=== PATIENT | female | born 1945 | race Caucasian/White ===

== ENCOUNTER → 2016-08-22 | Outpatient (CLI) | payer OTHER ==
[2016-07-29 14:08] LABS: BASOPHIL# 0.1 X10e3 (0.0-0.3); BASOPHIL% 1.2 % (0.0-2.5); EOSINOPHIL# 0.6 X10e3 (0.0-0.7); EOSINOPHIL% 8.5 % (0.0-7.0); HEMATOCRIT 38.6 % (35.0-45.0); HEMOGLOBIN 12.9 gm/dl (12.0-16.0); LYMPHOCYTE# 0.9 X10e3 (1.0-3.5); LYMPHOCYTE% 11.6 % (17.0-45.0); MEAN CORPUSCULAR HEMOGLOBIN 28.5 PG (28-34); MEAN CORPUSCULAR HGB CONC 33.5 g/dL (30-36); MEAN PLATELET VOLUME 7.6 FL (6.5-11.5); MONOCYTE# 0.8 X10e3 (0.0-1.0); MONOCYTE% 10.1 % (3.0-12.0); NEUTROPHIL# 5.1 X10e3 (1.5-7.1); NEUTROPHIL% 68.6 % (40.0-75.0); PLATELET COUNT 352 X10e3 (140-420); RED BLOOD COUNT 4.55 X10e6 (3.90-5.30); RED CELL DISTRIBUTION WIDTH 15.7 % (11.0-15.5); WHITE BLOOD COUNT 7.5 X10e3 (4.0-10.5)
[2016-07-29 14:19] LABS: ALBUMIN SERUM 2.7 g/dL (3.5-5.0); ALKALINE PHOSPHATASE 114 U/L (32-92); ALT (SGPT) 13 U/L (10-40); AST (SGOT) 23 U/L (10-42); BILIRUBIN,TOTAL 0.3 mg/dL (0.2-2.0); BLOOD UREA NITROGEN 7 mg/dL (9-23); BUN/CREATININE RATIO 11.66; CALCIUM SERUM 8.4 mg/dL (8.4-10.2); CARBON DIOXIDE 24 mmol/L (22-31); CHLORIDE 102 mmol/L (100-111); CREATININE SERUM 0.6 mg/dL (0.6-1.4); GLOM FILT RATE Estimated ABOVE60 mL/min (>60); GLUCOSE FASTING 152 mg/dL (70-110); POTASSIUM 4.1 mmol/L (3.5-5.1); SODIUM 135 mmol/L (135-145)
[2016-07-29 14:33] LABS: DIFF IND NO
[2016-07-29 16:28] LABS: SEDIMENTATION RATE-SW ONLY 25 mm/hr (0-45)
[~2016-08-22] MED LIST: ADVAIR 1001 DISK W/D PO; ALBUTEROL20 ml INH; ASMANEX; ATIVAN PO; BENICAR HCT 40-1 TA1 PO; BENICAR PO; CALCIUM 600 + D1 TAB PO; COZAAR100 MG PO; DICYCLOMINE HCL10 MG PO; DILTIAZEM 24HR180 M2 PO; IMDUR-ER30 M2 PO; LIPITOR20 MG PO; METFORMIN HCL500 M3 PO; SERTRALINE HCL50 M1 PO; SPIRIVA18 MCG INH; SYMBICORT INH; TYLENOL EXT.STRENGTH PO; VITAMIN D-32000 UNI1 PO; ZANTAC PO; [UNRECOGNIZED DRUG - OTHER] PO
--- NOTE | ~2016-08-22 | CT57 ---
[facility] A Service of [facility] & [facility] / [facility] RADIOLOGY TEXT RESULTS PATIENT: ANICETO LIANG [facility] 45 UN[facility] #: [id number] AGE: [address]: Ross La MD SEX: F ORDER DR: [id number] [facility] [address] [place], [place] [address] [id number] O MR#: [id number] Acc #: [id number] NAME: ANICETO LIANG : 1945 SEX: F STUDY DATE/TIME: 08/22/2016 10:59 UNIT: [facility] ROOM: STUDY DESCRIPTION: CT Chest Wo Cont Attending Physician: Ross La M.D. Referring Physician: Ross La M.D. Ordering Physician: Ross La M.D. Primary Care Physician: Constantine Bunch D.O. MEDICAL IMAGING REPORT This report is preliminary unless electronic signature is present EXAM CT chest without contrast 08/22/2016 1059 hours HISTORY 71-year-old woman with history of right lung lobectomy for lung carcinoma for followup. No reported chemo or radiation therapy. Observation for suspected malignant neoplasm. No acute chest complaints today. COMPARISON 03/21/2016. TECHNIQUE Helical noncontrasted images were obtained from the lung apices through the adrenal glands. Sagittal and coronal reconstructions were performed. Total exam DLP 468 mGy-cm. This CT examination was performed with one or more of the following radiation dose reduction techniques: automatic exposure control, adjustment of mA and/or kV according to patient size, and iterative reconstruction. FINDINGS Images through the thoracic inlet demonstrate no thyroid lesion or supraclavicular adenopathy. Images through the chest demonstrate coarse atherosclerotic changes of the aorta and the coronary arteries which are unchanged. Aorta measures 3.3 cm. Cardiac chambers, pericardium and esophagus are normal. There is no mediastinal or hilar adenopathy. There is postop change in the right upper lobe with linear scarring along the suture line. There is no evidence of local recurrence. The lungs elsewhere demonstrate emphysematous change with linear scar at the left base unchanged. There are no new or developing pulmonary parenchymal nodules. [facility] A Service of [facility] & [facility] / [facility] RADIOLOGY TEXT RESULTS PATIENT: ANICETO LIANG LOCATION: [facility] : 45 UNIT #: [id number] AGE: [address]: Ross La MD SEX: F ORDER DR: Limited views through the upper abdomen are unchanged. There is no adrenal lesion. There is artifact from hardware in the spine. There is disruption of the inferior cortex in the lower thoracic spine at the level above the highest screw. There is lucency through the lower half of the vertebral body representing a change from 03/21/2016. This could be degenerative, infectious or metastatic. A similar lucency is seen in the upper lumbar spine but this area is unchanged from the prior study. IMPRESSION 1. Postoperative changes in the right upper lung with suture line present. There is no evidence of local recurrence or metastatic disease. 2. Patient has had fusion from the lower thoracic spine to the upper lumbar spine with hardware present. There is an abnormal appearance to the inferior aspect of what I believe is the T10 vertebra which is the vertebra just above the most cephalad screw. There is lucency in the lower half of the vertebral body and destruction of the inferior endplate new from the CT scan of 03/21/2016. Patient has had an appearance such as this at the L1-2 level which appears stable. Differential considerations would include infection, metastasis or fracture related to osteoporosis or instability. This does represent a change from 03/21/2016. Consider MR evaluation. STAT * RESULT Dictated by... Cinthia Maloney M.D. THIS IS AN ELECTRONICALLY VERIFIED REPORT Cinthia Maloney M.D. at 08/22/2016 1:18 PM JODEE/darlene TD: 08/22/2016 12:21 JOB #: [id number] MEDICAL IMAGING REPORT COPY
== END | disposition home or self-care (01) ==
LOC: CCAT 10:35
PROVIDERS: Surgery
DX: Z08 Encounter for follow-up examination after completed treatment for malignant neoplasm (principal); Z85.118 Personal history of other malignant neoplasm of bronchus and lung; Z90.2 Acquired absence of lung [part of]; Z98.1 Arthrodesis status
CPT/HCPCS: 71250; 80053; 85025; 85651

== ENCOUNTER → 2017-03-06 | Outpatient (CLI) | payer OTHER ==
--- NOTE | ~2017-03-06 | CT57 ---
[facility] A Service of [facility] & [facility] RADIOLOGY TEXT RESULTS PATIENT: ANICETO LIANG LOCATION: [facility] : 45 UNIT #: [id number] AGE: [address]: Ross La MD SEX: F ORDER DR: [id number] [facility] [address]. [place], [place] [address] [id number] O MR#: [id number] Acc #: [id number] NAME: ANICETO LIANG : 1945 SEX: F STUDY DATE/TIME: 03/06/2017 12:44 UNIT: [facility] ROOM: STUDY DESCRIPTION: CT Chest Wo Cont Attending Physician: Ross La M.D. Referring Physician: Ross La M.D. Ordering Physician: Ross La M.D. Primary Care Physician: Constantine Bunch D.O. MEDICAL IMAGING REPORT This report is preliminary unless electronic signature is present EXAM CT chest without contrast. INDICATIONS Follow up lung cancer. TECHNIQUE CT of the chest was performed without contrast. Coronal and sagittal reformatted images were obtained. This CT exam was performed with one or more of the following radiation dose reduction techniques: automatic exposure control, adjustment of mA and/or kV according to patient size, and iterative reconstruction. COMPARISON Comparison is made with 08/22/2016. FINDINGS Postop changes of the right lung. Emphysema. There is a 8 mm nodule in the left lower lobe best seen on coronal image number 33. It is seen on axial image number 38. Is not clearly seen on any of the comparison studies. The nodule is nonspecific, however, given the patient's history of malignancy, certainly could represent a new malignancy or metastasis. At this point, it is too small for a biopsy and too close to the adjacent pulmonary artery. It may be able to be visualized on PET as it measures about 8 mm. Regardless, close interval followup is recommended. There is no lymphadenopathy. There is no evidence for pleural effusion. Coronary artery calcifications. Limited imaging of the upper abdomen is unremarkable. The bone windows show extensive postoperative change of the thoracolumbar spine with prior vertebral augmentations. IMPRESSION 1. Postop changes of the right lung are again noted. 2. There is an 8 mm nodule located in the left lower lobe as described STS. [facility] A Service of [facility] RADIOLOGY TEXT RESULTS PATIENT: ANICETO LIANG LOCATION: [facility] [place] : 45 UNIT #: [id number] AGE: [address]: Ross La MD SEX: F ORDER DR: above not clearly seen on any of the prior studies. It is nonspecific, however, given the patient's history of malignancy, this certainly may represent a new primary or possibly a metastasis. At this point, due to its size and location it is not amendable for percutaneous biopsy however may be resolved by PET. Regardless, close interval followup is recommended. Dictated by... Orlando Mcpherson M.D. THIS IS AN ELECTRONICALLY VERIFIED REPORT Orlando Mcpherson M.D. at 03/07/2017 7:18 AM MUSA/yossi TD: 03/06/2017 20:43 JOB #: [id number] MEDICAL IMAGING REPORT Page 1 of 1 COPY
== END | disposition home or self-care (01) ==
LOC: CCAT 12:27
DX: C34.90 Malignant neoplasm of unspecified part of unspecified bronchus or lung (principal); R91.1 Solitary pulmonary nodule
CPT/HCPCS: 71250